=== PATIENT | male | born 2005 | race Caucasian/White ===

== ENCOUNTER 2023-05-07 21:33 | Inpatient (IN) | payer SELFPAY ==
[2023-05-07] MEDS ORDERED: Sodium Chloride 0.9% 10 ML Syringe FLUSH PRN (22:34)
[2023-05-07] MEDS ORDERED: Sodium Chloride 0.9% 2.5 ML Syringe FLUSH PRN (22:34)
[2023-05-07 22:47] LABS: BASOPHILS ABSOLUTE AUTO 0.04 K/uL (0.00-0.30); BASOPHILS PERCENT AUTO 0.3 % (0.0-1.0); EOSINOPHILS ABSOLUTE AUTO 0.03 K/uL (0.00-0.70); EOSINOPHILS PERCENT AUTO 0.2 % (0.0-5.0); HEMATOCRIT 45.5 % (42.0-52.0); HEMOGLOBIN 16.2 g/dL (14.0-18.0); IMMATURE GRAN ABSOLUTE AUTO 0.03 K/uL (0.00-0.05); IMMATURE GRAN PERCENT AUTO 0.2 % (0.0-0.4); LYMPHOCYTES PERCENT AUTO 9.2 % (50.0-65.0); MEAN CORPUSCULAR HEMOGLOBIN 29.9 pg (28.0-32.0); MEAN CORPUSCULAR HGB CONC 35.6 g/dL (32.0-36.0); MEAN CORPUSCULAR VOLUME 84.1 fL (83.0-99.0); MEAN PLATELET VOLUME 10.4 fL (9.4-12.4); MONOCYTES ABSOLUTE AUTO 0.91 K/uL (0.10-1.40); NEUTROPHILS ABSOLUTE AUTO 10.84 K/uL (1.50-8.50); NEUTROPHILS PERCENT AUTO 83.1 % (35.0-45.0); PLATELET COUNT,PLT 233 K/uL (150-400); RED BLOOD CELL COUNT 5.41 M/uL (4.52-5.90); WHITE BLOOD CELL COUNT,WBC 13.05 K/uL (4.5-13.5)
[2023-05-07 23:00] LABS: INR 1.02 (0.86-1.11)
[2023-05-07 23:05] LABS: BLOOD UREA NITROGEN,BUN 10 mg/dL (7.0-18.0); CALCIUM 9.5 mg/dL (8.5-10.1); CARBON DIOXIDE,CO2 29.9 mmol/L (21.0-32.0); CHLORIDE,CL 98 mmol/L (98-107); ESTIMATED GFR 111 mL/min (>60); GLUCOSE RANDOM 106 mg/dL (74-106); LIPASE 15 U/L (16-77); POTASSIUM,K 3.8 mmol/L (3.5-5.1); SODIUM,NA 135 mmol/L (136-148)
[2023-05-07 23:12] LABS: LACTIC ACID 1.2 mmol/L (0.4-2.0)
[2023-05-07] MEDS ORDERED: Iopamidol 755 MG/ML 500 ML Multipack Bottle IVPUSH ONE (23:19)
[2023-05-08] MEDS ORDERED: Lactated Ringers 1,000 ML IV SCH ×2 (00:15→09:15)
[2023-05-08] MEDS ORDERED: droPERidol 5 MG/2 ML SDV IVPUSH PRN (07:26)
[2023-05-08] MEDS ORDERED: Metoclopramide 10 MG/2 ML SDV IVPUSH PRN (07:26)
[2023-05-08] MEDS ORDERED: Morphine 2 MG/ML SYRINGE IVPUSH PRN ×2 (07:26→09:23)
[2023-05-08] MEDS ORDERED: fentaNYL 50 MCG/ML SDV IVPUSH PRN (07:26)
[2023-05-08] MEDS ORDERED: HYDROmorphone 1 MG/ML Syringe IVPUSH PRN (07:26)
[2023-05-08] MEDS ORDERED: Albuterol 0.083% 2.5 MG/3 ML Neb Soln NEB PRN (07:26)
[2023-05-08] MEDS ORDERED: Ondansetron 4 MG/2 ML SDV IVPUSH PRN (07:26)
[2023-05-08] MEDS ORDERED: Naloxone 0.4 MG/ML SDV IVPUSH PRN (07:26)
[2023-05-08] MEDS ORDERED: Bupivacaine 0.25% 30 ML SDV ONE (07:38)
[2023-05-08] MEDS ORDERED: EPINEPHrine 1 MG/1 ML Amp ONE (07:38)
[2023-05-08] MEDS ORDERED: Ropivacaine 0.5% 5 MG/ML 30 ML SDV ONE (07:38)
[2023-05-08 08:14] LABS: APPEARANCE,URINE CLEAR; BILIRUBIN,URINE NEGATIVE (NEGATIVE); COLOR,URINE YELLOW; GLUCOSE,URINE NEGATIVE (NEGATIVE); KETONES,URINE NEGATIVE (NEGATIVE); LEUKOCYTE ESTERASE,URINE NEGATIVE (NEGATIVE); NITRITE,URINE NEGATIVE (NEGATIVE); OCCULT BLOOD,URINE NEGATIVE (NEGATIVE); PH,URINE 7.5 (5.0-8.0); PROTEIN,URINE NEGATIVE (NEGATIVE); UROBILINOGEN,URINE 0.2 EU/dL (<2.0)
[2023-05-08] MEDS ORDERED: Acetaminophen/HYDROcodone 325-5 MG Tab PO PRN (09:20)
[2023-05-08] MEDS ORDERED: cefOXitin 2 GM in Sodium Chloride 0.9% 50 ML IV SCH ×2 (14:00→16:00)
== END 2023-05-08 18:00 | disposition home or self-care (01) | DRG 398 ==
LOC: MW.ED 21:33 → MW.MS 05-08 00:20
PROVIDERS: ADMIT Surgery; ATTEND Surgery
PROC: 0DTJ4ZZ Resection of Appendix, Percutaneous Endoscopic Approach (ICD-10-PCS; principal; 2023-05-08)
DX: K35.80 Unspecified acute appendicitis (principal); N39.0 Urinary tract infection, site not specified; Z79.899 Other long term (current) drug therapy
CPT/HCPCS: 00840; 36415; 64488; 74177; 74177-26; 80048; 81003; 83605; 83690; 85025; 85610; 99285; J0131; J0171; J0690; J0694; J1100; J1885; J2270; J2405; J2704; J2795; J3010; J3490; J7120; Q9967